=== PATIENT | female | born 1995 | race Two or more races ===

== ENCOUNTER 2023-02-03 16:47 | Emergency (ER) | payer BC, MEDICAID ==
[~2023-02-03] VITALS: Ht 165.1 cm; Wt 56.8 kg
[2023-02-03 20:22] VITALS: BP 110/74; PULSE 58; RESP 14; TEMP 99.2; O2SAT 99
[2023-02-03] MEDS ORDERED: NEOMYCIN-BACITRACIN-POLYM UNITDOSE PKG TOP OINT TOP ONE (20:30)
[2023-02-03] MEDS ORDERED: TETANUS-DIPTH-ACEL PERTUSSIS 0.5ML SYR Tdap IM ONE (20:30)
[2023-02-03] MEDS ORDERED: MUPI2OIN2 EX (20:33)
[2023-02-03] MEDS ORDERED: CEPH500C PO (20:33)
== END 2023-02-03 21:05 | disposition home or self-care (01) ==
LOC: ER 16:47
DX: S51.811A Laceration without foreign body of right forearm, initial encounter (principal); F41.9 Anxiety disorder, unspecified; F32.9 Major depressive disorder, single episode, unspecified; Z79.899 Other long term (current) drug therapy; W45.8XXA Other foreign body or object entering through skin, initial encounter; Y93.89 Activity, other specified; Y92.89 Other specified places as the place of occurrence of the external cause; Y99.8 Other external cause status
CPT/HCPCS: 12002; 90471; 90715